=== PATIENT | female | born 1995 | race Caucasian/White ===

== ENCOUNTER 2016-10-28 00:16 | Emergency (ER) | payer OTHER ==
[~2016-10-28] VITALS: Ht 165.1 cm; Wt 85.0 kg
[~2016-10-28 00:16] MED LIST: NITR-58 PO
[2016-10-28 00:26] VITALS: Ht 165.1 cm; Wt 85.0 kg
[2016-10-28] MEDS ORDERED: ACETAMINOPHEN 500 MG TAB PO STA (00:59)
[2016-10-28] MEDS ORDERED: BACITRACIN 0.9 GM OINT TOP ONE (01:00)
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
[2016-10-28] MEDS ORDERED: ACET500C5 PO (01:17)
[2016-10-28] MEDS ORDERED: BACI28.34 TOP (01:17)
[2016-10-28 01:23] VITALS: BP 134/74; PULSE 102; RESP 16
== END 2016-10-28 01:37 | disposition home or self-care (01) ==
LOC: FTE 00:16
DX: T23.272A Burn of second degree of left wrist, initial encounter (principal); J45.909 Unspecified asthma, uncomplicated; X12.XXXA Contact with other hot fluids, initial encounter; Y92.9 Unspecified place or not applicable
CPT/HCPCS: 99283

== ENCOUNTER 2016-10-28 01:42 | Outpatient (CLI) | payer OTHER ==
[~2016-10-28 01:42] MED LIST changes: +ACET500C5 PO; +BACI28.34 TOP
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
== END 2016-10-28 02:22 | disposition home or self-care (01) ==
LOC: OBT 01:42 → L-D 01:44 → OBT 02:22
PROVIDERS: ATTEND Obstetrics & Gynecology
DX: O26.893 Other specified pregnancy related conditions, third trimester (principal); T23.009A Burn of unspecified degree of unspecified hand, unspecified site, initial encounter; Z3A.32 32 weeks gestation of pregnancy
CPT/HCPCS: 59025; G0463

== ENCOUNTER 2018-02-24 12:35 | Emergency (ER) | END 2018-02-24 13:26 | disposition home or self-care (01) ==